=== PATIENT | female | born 1960 | race African-American/Black ===

== ENCOUNTER 2017-03-12 15:34 | Observation (INO) | payer OTHER ==
[~2017-03-12] VITALS: Ht 160 cm; Wt 56.8 kg
[~2017-03-12 15:34] MED LIST: IBUP600T26 PO; ULTR50TA PO; Z.0.NO CURRENT MEDS
[2017-03-12 15:36] VITALS: BP 139/82; PULSE 99; RESP 20; TEMP 98.4; O2SAT 98
--- NOTE | 2017-03-12 17:18 | PD ---
HPI Chief Complaint: Injury Time Seen by Provider: 17:14 Travel History International Travel<30 days: No Contact w/Intl Traveler<30days: No Traveled to known affect area: No History of Present Illness HPI 56-year-old Afro-[place] female presents the emergency department status post fall 5 days ago while visiting [place]. Patient states she slipped and fell down a hill injuring her left elbow. Seen in the emergency department at that time and had multiple x-rays and CT scans. CT of the left forearm shows severely displaced fracture of the distal humerus and possible avulsion fracture of the olecranon process. The patient elected to not pursue further care in [place] as her insurance would not cover any services. She is here now for follow-up wearing a splint and sling to the left arm. She is complaining of pain and is concerned about the swelling in the left hand. She has no numbness or tingling. Pain is described as a 9 out of 10. Patient has brought the copies of the x-rays and CT scans with her as well as reports from the emergency department. Patient states she has not eaten since last evening. She is allergic to contrast media and penicillin. PFSH Past Medical History Anemia: Yes Diabetes: No Diminished Hearing: No Menopausal: Yes : 0 Past Surgical History Other Surgery: Yes (PLASTIC SURGERY POST ACCIDENT LATE 'S) Social History Alcohol Use: Yes (4 PACK PER DAY) Tobacco Use: Yes (1 PPD) Substance Use: Yes ("DEEPTI BAG A DAY OF WEED") Allergies-Medications (Allergen,Severity, Reaction): Coded Allergies: Penicillin (Verified Allergy, Severe, Anaphylaxis, 03/12/17) Contrast Media (Verified Allergy, Intermediate, Anaphylaxis, 03/12/17) Reported Meds & Prescriptions Reported Meds & Active Scripts Active Ultram (Tramadol HCl) 50 Mg Tab 50 Mg PO Q4 PRN Take as needed for pain. Ibuprofen 600 Mg Tab 600 Mg PO Q8H PRN Reported No Current Meds (Miscellaneous Medication) Misc Review of Systems Except as stated in HPI: all other systems reviewed are Neg General / Constitutional: No: Fever Eyes: No: Visual changes HENT: No: Headaches Cardiovascular: No: Chest Pain or Discomfort Respiratory: No: Shortness of Breath Gastrointestinal: No: Abdominal Pain Genitourinary: No: Dysuria Musculoskeletal: No: Pain Skin: No Rash Neurologic: No: Weakness Psychiatric: No: Depression Endocrine: No: Polydipsia Hematologic/Lymphatic: No: Easy Bruising Physical Exam Exam Limitations: Poor Historian Narrative GENERAL: Patient appears mild to moderate distress. SKIN: Warm and dry. Normal color. Normal turgor. There is ecchymosis to the left hand with moderate swelling. The hand is warm and she is able to wiggle her fingers. HEAD: Atraumatic. Normocephalic. EYES: Pupils equal and round. No scleral icterus. No injection or drainage. ENT: No nasal bleeding or discharge. Mucous membranes pink and moist. Pharynx is clear. Airway is patent. NECK: Trachea midline. Supple nontender. CARDIOVASCULAR: Regular rate and rhythm. RESPIRATORY: No accessory muscle use. Clear to auscultation. Breath sounds equal bilaterally. MUSCULOSKELETAL: Extremities without clubbing, cyanosis, or edema. No obvious deformities. Patient is in a posterior long-arm splint. Neurovascular exam of the left hand is within normal limits. Ecchymosis is noted. NEUROLOGICAL: Awake and alert. No obvious cranial nerve deficits. Motor grossly within normal limits. Five out of 5 muscle strength in the arms and legs. Normal speech. PSYCHIATRIC: Appropriate mood and affect; insight and judgment normal. Data Data Last Documented VS Vital Signs Date Time Temp Pulse Resp B/P Pulse Ox O2 Delivery O2 Flow Rate FiO2 03/12/17 15:36 98.4 99 20 139/82 98 Orders Ice/Cold Pack (03/12/17 17:18) Oxycodone-Acetamin 7.5-325 Mg (Percocet (03/12/17 17:30) Basic Metabolic Panel (Bmp) (03/12/17 17:36) Complete Blood Count With Diff (03/12/17 17:36) Iv Access Insert/Monitor (03/12/17 17:36) Ecg Monitoring (03/12/17 17:36) Oximetry (03/12/17 17:36) Morphine Inj (Morphine Inj) (03/12/17 17:45) Ondansetron Inj (Zofran Inj) (03/12/17 17:45) Sodium Chlor 0.9% 1000 Ml Inj (Ns 1000 M (03/12/17 17:36) Sodium Chloride 0.9% Flush (Ns Flush) (03/12/17 17:45) Electrocardiogram (03/12/17 17:36) Ct Elbow W/O Contrast (03/12/17 ) Elbow, Limited (Ap&Lat) (03/12/17 17:18) Admit Order (Ed Use Only) (03/12/17 18:59) Labs Laboratory Tests Test 03/12/17 18:25 White Blood Count 6.1 TH/MM3 Red Blood Count 3.40 MIL/MM3 Hemoglobin 11.5 GM/DL Hematocrit 33.6 % Mean Corpuscular Volume 98.8 FL Mean Corpuscular Hemoglobin 33.7 PG Mean Corpuscular Hemoglobin 34.2 % Concent Red Cell Distribution Width 13.3 % Platelet Count 144 TH/MM3 Mean Platelet Volume 9.1 FL Neutrophils (%) (Auto) 39.9 % Lymphocytes (%) (Auto) 45.5 % Monocytes (%) (Auto) 12.1 % Eosinophils (%) (Auto) 1.7 % Basophils (%) (Auto) 0.8 % Neutrophils # (Auto) 2.4 TH/MM3 Lymphocytes # (Auto) 2.8 TH/MM3 Monocytes # (Auto) 0.7 TH/MM3 Eosinophils # (Auto) 0.1 TH/MM3 Basophils # (Auto) 0.1 TH/MM3 CBC Comment DIFF FINAL Differential Comment MDM Medical Decision Making Medical Screen Exam Complete: Yes Emergency Medical Condition: Yes Medical Record Reviewed: Yes Differential Diagnosis Recent fall. Left elbow fracture. Need for open reduction and fixation. Narrative Course Patient is medically stable at time of exam. Medical record from the [place] emergency department and CT results are reviewed with Dr. Mead. Call was placed to Dr. Ford, the orthopedic on-call. Patient was discussed with Dr. Ford and he recommended that the patient have x -rays, repeat CBC, and basic labs for surgery tomorrow morning. He requested the patient be admitted to the hospitalist and made nothing by mouth after midnight. Labs ordered including CBC, BMP, EKG, chest x-ray, repeat x-ray of the left elbow and CT of the left elbow. IV access is obtained and the patient is given 4 mg Zofran IV as well as 4 mg morphine IV. Patient started on normal saline 125 mL per hour. 1830 hrs. call was placed to the hospitalist for admission. Diagnosis Primary Impression: Comminuted left humeral fracture Qualified Code: S42.352A - Closed displaced comminuted fracture of shaft of left humerus, initial encounter Admitting Information Admitting Physician Requests: Admit Condition: Stable Pedro Forte Mar 12, 2017 17:18
[2017-03-12] MEDS ORDERED: oxyCODONE/ACETAMINOPHEN 7.5 MG/325 MG TAB PO ONE (17:30)
[2017-03-12] MEDS ORDERED: SODIUM CHLOR 0.9% 1000 ML INJ 1,000 ML IV SCH (17:36)
[2017-03-12] MEDS ORDERED: ONDANSETRON HCL 4 MG/2 ML VIAL IVP ONE (17:45)
[2017-03-12] MEDS ORDERED: MORPHINE SULFATE 4 MG/ML INJ IV PUSH ONE (17:45)
[2017-03-12] MEDS ORDERED: SODIUM CHLORIDE 0.9% FLUSH 10 ML FLUSH IV FLUSH PRN ×2 (17:45→19:30)
--- NOTE | 2017-03-12 18:17 | RADRPT ---
EXAM DATE/TIME: 03/12/2017 17:40 [facility] COMPARISON: No previous studies available for comparison. INDICATIONS : Left elbow pain after patient fell down a hill today MEDICAL HISTORY : None. SURGICAL HISTORY : None. ENCOUNTER: Initial ACUITY: 1 day PAIN SCORE: 10/10 LOCATION: Left posterior elbow FINDINGS: There are comminuted fractures of the intercondylar distal humerus with at least 3 fragments present. A a lateral fragment also appears rotated. The radial head is not well seen in lateral projection and cannot exclude an associated radial head fracture. No radiopaque foreign bodies. CONCLUSION: Comminuted fractures of the distal intercondylar humerus. Mauricio Irvin MD on March 12, 2017 at 18:14 Board Certified Radiologist. This report was verified electronically.
[2017-03-12 18:41] LABS: AUTOMATED NEUTROPHIL # 2.4 TH/MM3 (1.8-7.7); BASOPHIL # 0.1 TH/MM3 (0-0.2); BASOPHIL % 0.8 % (0.0-2.0); EOSINOPHIL # 0.1 TH/MM3 (0-0.4); EOSINOPHIL % 1.7 % (0.0-4.0); HEMATOCRIT 33.6 % (35.0-46.0); HEMO FLAGS DIFF FINAL; LYMPH % 45.5 % (9.0-44.0); LYMPHOCYTE # 2.8 TH/MM3 (1.0-4.8); MEAN CELL VOLUME 98.8 FL (80.0-100.0); MEAN CORPUSCULAR HEMOGLOBIN 33.7 PG (27.0-34.0); MEAN CORPUSCULAR HGB CONC 34.2 % (32.0-36.0); MONO % 12.1 % (0.0-8.0); NEUT % 39.9 % (16.0-70.0); PLATELET COUNT 144 TH/MM3 (150-450); RED CELL DISTRIBUTION WIDTH 13.3 % (11.6-17.2); WHITE BLOOD COUNT 6.1 TH/MM3 (4.0-11.0)
--- NOTE | 2017-03-12 18:56 | RADRPT ---
EXAM DATE/TIME: 03/12/2017 17:56 [facility] COMPARISON: No previous studies available for comparison. INDICATIONS : Left elbow pain from fall. RADIATION DOSE: 47.88 CTDIvol (mGy) MEDICAL HISTORY : None SURGICAL HISTORY : None. ENCOUNTER: Initial ACUITY: 1 week PAIN SCALE: 10/10 LOCATION: Left elbow. TECHNIQUE: Volumetric scanning of the elbow was performed. Using automated exposure control and adjustment of t he mA and/or kV according to patient size, radiation dose was kept as low as reasonably achievable to obtain optimal diagnostic quality images. DICOM format image data is available electronically for r eview and comparison. FINDINGS: Severely comminuted fracture of the distal humerus in the intercondylar region for major fragments. There is a rotated fragment present laterally which measures 1.4 cm. The fracture lines do involve t he articular joint space. The metaphysis of the humerus is displaced anteriorly 1.5 cm with respect to the trochlea. The proximal radius and ulna appear grossly intact. CONCLUSION: Comminuted distal humeral fracture with several displaced fragments. Mauricio Irvin MD on March 12, 2017 at 18:52 Board Certified Radiologist. This report was verified electronically.
[2017-03-12 19:06] LABS: POTASSIUM 3.6 MEQ/L (3.5-5.1)
[2017-03-12] MEDS ORDERED: OXYC1TAB63 PO (19:09)
[2017-03-12] MEDS ORDERED: OXYC1CAP PO (19:09)
[2017-03-12] MEDS ORDERED: LACTULOSE SYRUP 20 GM/30 ML CUP PO PRN (19:30)
[2017-03-12] MEDS ORDERED: NALOXONE HCL 0.4 MG/ML AMP IV PRN (19:30)
[2017-03-12] MEDS ORDERED: SENNOSIDES 8.6 MG TAB PO PRN (19:30)
[2017-03-12] MEDS ORDERED: ONDANSETRON HCL 4 MG/2 ML VIAL IVP PRN (19:30)
[2017-03-12] MEDS ORDERED: BISACODYL 10 MG SUPP RECTAL PRN (19:30)
[2017-03-12] MEDS ORDERED: HYDROmorphone HCL PF 1 MG/ML VIAL IV PRN (19:30)
[2017-03-12 19:40] VITALS: BP 135/79; PULSE 90; RESP 18; O2SAT 99
[2017-03-12] MEDS: SODIUM CHLOR 0.9% 1000 ML INJ 1,000 ML IV SCH (19:40)
--- NOTE | 2017-03-12 19:57 | HHI.HP ---
[facility] Service [facility] Primary Care Physician Unknown Admission Diagnosis Left Elbow Fracture Diagnoses: (1) Comminuted left humeral fracture Diagnosis: Principal (2) Anemia Diagnosis: Principal (3) Thrombocytopenia Diagnosis: Principal (4) Alcohol abuse Diagnosis: Principal (5) Tobacco abuse Diagnosis: Principal Travel History International Travel<30 Days: No Contact w/Intl Traveler <30 Da: No Traveled to Known Affected Are: No History of Present Illness This is a 56-year-old female with a PMH of Alcohol Abuse and Tobacco Abuse who presented to the ER with complaints of left arm pain and swelling x5 days. States she fell while in [place] and was seen in ER there. CT LUE w/ severely displaced fracture of distal humerus and possible avulsion fracture of olecranon. Pt was offered surgical intervention, however she declined. Now w/ progressive pain/swelling. On arrival, BP 130/82, HR 99, O2 sat 98% on RA, Afebrile. Hemoglobin 11.5, previously 14 on 04/12/12. Platelets 144, previously 181 on 04/12/12. Chemistry essentially unremarkable. Elbow X-rays comminuted fracture of distal intercondylar humerus. CT LUE comminuted distal humerus fracture with several displaced fragments. Orthopedic Surgery consulted by ER physician, plan is for surgical intervention. Review of Systems Except as stated in HPI: all other systems reviewed are Neg ROS: 14 point review of systems otherwise negative. Past Family Social History Past Medical History PMH: Alcohol Abuse and Tobacco Abuse Past Surgical History PAST SURGICAL HISTORY: Plastic Surgery Allergies: Coded Allergies: Penicillin (Verified Allergy, Severe, Anaphylaxis, 03/12/17) Contrast Media (Verified Allergy, Intermediate, Anaphylaxis, 03/12/17) Family History PAST FAMILY HISTORY: Reviewed. No h/o DM or CAD Social History PAST SOCIAL HISTORY: Drinks 4 pack daily. Smokes 1ppd. +Marijuana. Physical Exam Vital Signs Vital Signs Date Time Temp Pulse Resp B/P Pulse Ox O2 Delivery O2 Flow Rate FiO2 03/12/17 19:40 90 18 135/79 99 03/12/17 15:36 98.4 99 20 139/82 98 Physical Exam PE: GENERAL: Middle-aged female in no acute distress. HEENT: PERRLA, EOMI. No scleral icterus or conjunctival pallor. No lid lag or facial droop. CARDIOVASCULAR: Regular rate and rhythm. No obvious murmurs to auscultation. No chest tenderness to palpation. RESPIRATORY: No obvious rhonchi or wheezing. Clear to auscultation. Breath sounds equal bilaterally. GASTROINTESTINAL: Abdomen soft, non-tender, nondistended. BS normal. MUSCULOSKELETAL: Extremities without clubbing, cyanosis, or edema. No obvious deformities. LUE w/ swelling/ecchymosis. Decreased ROM due to pain. NEUROLOGICAL: Awake, alert and oriented x4. No focal neurologic deficits. Moving both upper and lower extremities spontaneously. Laboratory Laboratory Tests Test 03/12/17 18:25 White Blood Count 6.1 Red Blood Count 3.40 Hemoglobin 11.5 Hematocrit 33.6 Mean Corpuscular Volume 98.8 Mean Corpuscular Hemoglobin 33.7 Mean Corpuscular Hemoglobin 34.2 Concent Red Cell Distribution Width 13.3 Platelet Count 144 Mean Platelet Volume 9.1 Neutrophils (%) (Auto) 39.9 Lymphocytes (%) (Auto) 45.5 Monocytes (%) (Auto) 12.1 Eosinophils (%) (Auto) 1.7 Basophils (%) (Auto) 0.8 Neutrophils # (Auto) 2.4 Lymphocytes # (Auto) 2.8 Monocytes # (Auto) 0.7 Eosinophils # (Auto) 0.1 Basophils # (Auto) 0.1 CBC Comment DIFF FINAL Differential Comment Sodium Level 138 Potassium Level 3.6 Chloride Level 104 Carbon Dioxide Level 26.0 Anion Gap 8 Blood Urea Nitrogen 8 Creatinine 0.36 Estimat Glomerular Filtration 226 Rate Random Glucose 71 Calcium Level 8.7 Result Diagram: 03/12/17182403/12/171824 Assessment and Plan Problem List: (1) Comminuted left humeral fracture ICD Code: S42.302A Status: Acute (2) Thrombocytopenia ICD Code: D69.6 Status: Acute (3) Anemia ICD Code: D64.9 Status: Acute (4) Alcohol abuse ICD Code: F10.10 Status: Acute (5) Tobacco abuse ICD Code: Z72.0 Status: Acute Assessment and Plan A/P: 1. Left Elbow Fx: s/p fall 5 days ago in [place], found to have left elbow fracture, offered intervention however declined, now w/ progressive pain/ swelling, arrived w/ splint/sling. Elbow X-ray w/ comminuted fracture of distal intercondylar humerus. CT LUE with comminuted distal humerus fracture with several displaced fragments, images reviewed by me. Ortho consulted by ER physician, plan is for surgical intervention in am. NPO, IVF, analgesics/ antiemetics as needed. 2. Anemia: Hgb 11.5, previously 14.0 on 04/12/12. No active bleeding. Hemodynamically stable. Repeat labs in am. 3. Thrombocytopenia: Platelets 144, previously 181 on 04/12/12. No active bleeding as above. Repeat labs in am. 4. Alcohol Abuse: Drinks 4-6 beers/day. CIWA, Seizure Precautions, MVT/ Thiamine/Folate 5. Tobacco Abuse: Pt counselled. NicoDerm prn if needed. 6. DVT Prophylaxis: Anticoagulation post op per Ortho 7. Social work for d/c planning as needed. 8. Case discussed w/ ER physician at length. Physician Certification 2 Midnight Certification Type: Admission for Inpatient Services Order for Inpatient Services The services are ordered in accordance with Medicare regulations or non- Medicare payer requirements, as applicable. In the case of services not specified as inpatient-only, they are appropriately provided as inpatient services in accordance with the 2-midnight benchmark. Estimated LOS (days): 2 days is the estimated time the patient will need to remain in the hospital, assuming treatment plan goals are met and no additional complications. Post-Hospital Plan: Not yet determined Problem Qualifiers (1) Comminuted left humeral fracture: Qualified Code: S42.352A - Closed displaced comminuted fracture of shaft of left humerus, initial encounter Lizzie Sheridan MD Mar 12, 2017 19:57
[2017-03-12] MEDS: DOCUSATE SODIUM 50 MG/SENNA 8.6 MG TAB PO SCH (20:38)
[2017-03-12 21:00] VITALS: BP 114/78; PULSE 80; RESP 18; TEMP 96.9; O2SAT 97
[2017-03-12] MEDS: SODIUM CHLORIDE 0.9% FLUSH 10 ML FLUSH IV FLUSH SCH (21:00)
[2017-03-12] MEDS: HYDROmorphone HCL PF 1 MG/ML VIAL IV PRN (21:04)
[2017-03-12] MEDS ORDERED: SODIUM CHLORID 0.9% 500 ML IV PRN ×2 (21:30)
[2017-03-12] MEDS ORDERED: LACTATED RINGER'S 1000 ML IV PRN ×2 (21:30)
[2017-03-12] MEDS ORDERED: CHLORHEXIDINE GLUCONATE 2 % 1 PACK (2 CLOTHS) TOPICAL PRN ×2 (21:30)
[2017-03-12] MEDS ORDERED: INSULIN HUMAN REGULAR 1,000 UNITS/10 ML VIAL SQ PRN ×2 (21:30)
[2017-03-12] MEDS ORDERED: METOPROLOL TARTRATE 25 MG TAB PO PRN ×2 (21:30)
[2017-03-12] MEDS ORDERED: LORazepam 2 MG/ML VIAL IV PUSH PRN ×4 (22:15)
[2017-03-12] MEDS ORDERED: LORazepam 2 MG TAB PO PRN (22:15)
[2017-03-12] MEDS ORDERED: FLUMAZENIL 0.5 MG/5 ML VIAL IV PUSH PRN (22:15)
[2017-03-12] MEDS ORDERED: LORazepam 1 MG TAB PO PRN (22:15)
[2017-03-12] MEDS ORDERED: HALOPERIDOL LACTATE 5 MG/ML AMP IM PRN (22:15)
[2017-03-13 00:15] VITALS: BP 114/76; PULSE 81; RESP 16; TEMP 96.4; O2SAT 95
[2017-03-13] MEDS: HYDROmorphone HCL PF 1 MG/ML VIAL IV PRN ×3 (03:21→12:45)
[2017-03-13 04:15] VITALS: BP 111/70; PULSE 77; RESP 17; TEMP 96.2; O2SAT 95
[2017-03-13] MEDS: SODIUM CHLOR 0.9% 1000 ML INJ 1,000 ML IV SCH (06:00)
[2017-03-13 08:00] VITALS: BP 131/85; PULSE 76; RESP 18; TEMP 96.4; O2SAT 97
[2017-03-13 08:40] LABS: BICARBONATE 25.6 MEQ/L (21.0-32.0); POTASSIUM 4.1 MEQ/L (3.5-5.1)
[2017-03-13 08:42] LABS: AUTOMATED NEUTROPHIL # 2.1 TH/MM3 (1.8-7.7); BASOPHIL % 0.5 % (0.0-2.0); EOSINOPHIL # 0.1 TH/MM3 (0-0.4); EOSINOPHIL % 2.2 % (0.0-4.0); HEMATOCRIT 33.2 % (35.0-46.0); HEMO FLAGS DIFF FINAL; LYMPH % 37.3 % (9.0-44.0); LYMPHOCYTE # 1.6 TH/MM3 (1.0-4.8); MEAN CELL VOLUME 98.9 FL (80.0-100.0); MEAN CORPUSCULAR HEMOGLOBIN 33.5 PG (27.0-34.0); MEAN CORPUSCULAR HGB CONC 33.8 % (32.0-36.0); MONO % 12.3 % (0.0-8.0); NEUT % 47.7 % (16.0-70.0); PLATELET COUNT 148 TH/MM3 (150-450); RED BLOOD COUNT 3.35 MIL/MM3 (4.00-5.30); RED CELL DISTRIBUTION WIDTH 13.8 % (11.6-17.2); WHITE BLOOD COUNT 4.3 TH/MM3 (4.0-11.0)
[2017-03-13] MEDS: DOCUSATE SODIUM 50 MG/SENNA 8.6 MG TAB PO SCH ×2 (09:50→19:34)
[2017-03-13] MEDS: MULTIVITAMINS/MINERALS THERAPEUTIC TAB PO SCH (09:50)
[2017-03-13] MEDS: FOLIC ACID 1 MG TAB PO SCH (09:50)
[2017-03-13] MEDS: THIAMINE HCL 100 MG TAB PO SCH (09:50)
[2017-03-13] MEDS: SODIUM CHLORIDE 0.9% FLUSH 10 ML FLUSH IV FLUSH SCH ×2 (09:50→19:35)
[2017-03-13 12:00] VITALS: BP 142/78; PULSE 74; RESP 18; TEMP 96.5; O2SAT 97
--- NOTE | 2017-03-13 13:33 | EKG ---
Date Performed: 03/12/2017 Time Performed: 19:10:18 PTAGE: 56 years EKG: Sinus rhythm NORMAL ECG PREVIOUS TRACING : 12/17/2002 10.32 Since previous tracing, no significant change noted DOCTOR: Mario Santiago Interpretating Date/Time 03/13/2017 13:32:25
--- NOTE | 2017-03-13 13:55 | HHI.PR ---
Subjective Remarks This is a 56-year-old female with a PMH of Alcohol Abuse and Tobacco Abuse who presented to the ER with complaints of left arm pain and swelling x5 days. States she fell while in [place] and was seen in ER there. CT LUE w/ severely displaced fracture of distal humerus and possible avulsion fracture of olecranon. Pt was offered surgical intervention, however she declined. Now w/ progressive pain/swelling. On arrival, BP 130/82, HR 99, O2 sat 98% on RA, Afebrile. Hemoglobin 11.5, previously 14 on 04/12/12. Platelets 144, previously 181 on 04/12/12. Chemistry essentially unremarkable. Elbow X-rays comminuted fracture of distal intercondylar humerus. CT LUE comminuted distal humerus fracture with several displaced fragments. Orthopedic Surgery consulted by ER physician, plan is for surgical intervention. 03-13 await ortho surgery on the left elbow on Wednesday Patient states pain is not controlled yet Will adjust her pain medications Discussed with patient and RN Objective Vitals Vital Signs Date Time Temp Pulse Resp B/P Pulse Ox O2 Delivery O2 Flow Rate FiO2 03/13/17 08:00 96.4 76 18 131/85 97 03/13/17 04:15 96.2 77 17 111/70 95 03/13/17 00:15 96.4 81 16 114/76 95 03/12/17 21:00 96.9 80 18 114/78 97 03/12/17 19:40 90 18 135/79 99 03/12/17 15:36 98.4 99 20 139/82 98 I/O 03/12/17 03/12/17 03/12/17 03/13/17 03/13/17 03/13/17 06:59 14:59 22:59 06:59 14:59 22:59 Intake Total 240 ml 0 ml 70 ml Balance 240 ml 0 ml 70 ml Intake Oral 240 ml 0 ml IV Total 70 ml # Voids 1 1 # Bowel Movements 0 0 Result Diagram: 03/13/17 0737 03/13/17 0737 Other Results Laboratory Tests Test 03/12/17 03/13/17 18:25 07:37 White Blood Count 6.1 TH/MM3 4.3 TH/MM3 Red Blood Count 3.40 MIL/MM3 3.35 MIL/MM3 Hemoglobin 11.5 GM/DL 11.2 GM/DL Hematocrit 33.6 % 33.2 % Mean Corpuscular Volume 98.8 FL 98.9 FL Mean Corpuscular Hemoglobin 33.7 PG 33.5 PG Mean Corpuscular Hemoglobin 34.2 % 33.8 % Concent Red Cell Distribution Width 13.3 % 13.8 % Platelet Count 144 TH/MM3 148 TH/MM3 Mean Platelet Volume 9.1 FL 9.2 FL Neutrophils (%) (Auto) 39.9 % 47.7 % Lymphocytes (%) (Auto) 45.5 % 37.3 % Monocytes (%) (Auto) 12.1 % 12.3 % Eosinophils (%) (Auto) 1.7 % 2.2 % Basophils (%) (Auto) 0.8 % 0.5 % Neutrophils # (Auto) 2.4 TH/MM3 2.1 TH/MM3 Lymphocytes # (Auto) 2.8 TH/MM3 1.6 TH/MM3 Monocytes # (Auto) 0.7 TH/MM3 0.5 TH/MM3 Eosinophils # (Auto) 0.1 TH/MM3 0.1 TH/MM3 Basophils # (Auto) 0.1 TH/MM3 0.0 TH/MM3 CBC Comment DIFF FINAL DIFF FINAL Differential Comment Sodium Level 138 MEQ/L 142 MEQ/L Potassium Level 3.6 MEQ/L 4.1 MEQ/L Chloride Level 104 MEQ/L 107 MEQ/L Carbon Dioxide Level 26.0 MEQ/L 25.6 MEQ/L Anion Gap 8 MEQ/L 9 MEQ/L Blood Urea Nitrogen 8 MG/DL 6 MG/DL Creatinine 0.36 MG/DL 0.34 MG/DL Estimat Glomerular Filtration 226 ML/MIN 242 ML/MIN Rate Random Glucose 71 MG/DL 69 MG/DL Calcium Level 8.7 MG/DL 8.0 MG/DL Imaging Last Impressions Elbow X-Ray 03/12/17 1718 Signed Impressions: Service Date/Time: Sunday, March 12, 2017 17:40 - CONCLUSION: Comminuted fractures of the distal intercondylar humerus. Mauricio Irvin MD Upper Extremity CT 03/12/17 0000 Signed Impressions: Service Date/Time: Sunday, March 12, 2017 17:56 - CONCLUSION: Comminuted distal humeral fracture with several displaced fragments. Mauricio Irvin MD Objective Remarks GENERAL: Awake and alert talkative and cooperative but appears to be in some degree of pain from the left upper extremity SKIN: Warm and dry. HEAD: Atraumatic. Normocephalic. EYES: Pupils equal and round. No scleral icterus. No injection or drainage. Extraocular muscles intact ENT: No nasal bleeding or discharge. Mucous membranes pink and moist. Tongue is midline NECK: Trachea midline. No JVD. CARDIOVASCULAR: Regular rate and rhythm. S1-S2 no S3 or S4 no heave or thrill or rub or gallop RESPIRATORY: No accessory muscle use. Clear to auscultation. Breath sounds equal bilaterally. GASTROINTESTINAL: Abdomen soft, non-tender, nondistended. Hepatic and splenic margins not palpable. MUSCULOSKELETAL: Extremities without clubbing, cyanosis, or edema. No obvious deformities. Left upper extremity in splint-- decreased swelling of left hand she states NEUROLOGICAL: Awake and alert. No obvious cranial nerve deficits. Motor grossly within normal limits. Five out of 5 muscle strength in the arms and legs. Normal speech. Left upper extremity decreased range of motion secondary to splint and pain PSYCHIATRIC: Appropriate mood and affect; insight and judgment normal. Medications and IVs Inpatient Medications Bisacodyl (Dulcolax Supp) 10 mg DAILY PRN RECTAL SEVERE CONSITIPATION; Start at 19:30 Chlorhexidine Gluconate (Chlorhexidine 2% Cloth) 3 pack GLASS CUT OFF SUPERVISOR PRN TOPICAL SEE LABEL COMMENTS; Start 03/12/17 at 21:30; Stop 03/12/17 at 21:30; Status DC Flumazenil (Romazicon Inj) 0.2 mg Q1M PRN IV PUSH SEE LABEL COMMENTS; Start 03/12/17 at 22:15 Folic Acid (Folate) 1 mg DAILY PO Last administered on 03/13/17 09:50; Start at 09:00; Stop 03/18/17 at 08:59 Haloperidol Lactate (Haldol Inj) 2 mg Q15M PRN IM SEE LABEL COMMENTS; Start 03/12/17 at 22:15 Hydromorphone HCl (Dilaudid Pf Inj) 1 mg Q3H PRN IV Pain 6-10;if unable to take PO Last administered on 03/13/17 12:45; Start 03/12/17 at 19:30 Insulin Human Regular (NovoLIN R INJ) See Protocol Table ... GLASS CUT OFF SUPERVISOR PRN SQ SEE PROTOCOL TABLE; Start 03/12/17 at 21:30; Stop 03/15/17 at 21:29 Lactated Ringer's 1,000 ml @ 30 mls/hr Q24H PRN IV SEE LABEL COMMENTS; Start at 21:30; Stop 03/15/17 at 21:29 Lactulose 30 ml 30 ml DAILY PRN PO SEVERE CONSITIPATION; Start 03/12/17 at 19:30 Lorazepam (Ativan Inj) 2 mg Q15M PRN IV PUSH CIWA > 20; Start 03/12/17 at 22:15 Lorazepam (Ativan) 2 mg Q2H PRN PO CIWA 11-14; Start 03/12/17 at 22:15 Magnesium Hydroxide (Milk Of Magnesia Liq) 30 ml Q12H PRN PO MILD - MODERATE CONSTIPATION; Start 03/12/17 at 19:30 Metoprolol Tartrate (Lopressor) 25 mg GLASS CUT OFF SUPERVISOR PRN PO SEE LABEL COMMENTS; Start 03/12/17 at 21:30; Stop 03/15/17 at 21:29 Morphine Sulfate (Morphine Inj) 4 mg ONCE ONCE IV PUSH Last administered on 18:27; Start 03/12/17 at 17:45; Stop 03/12/17 at 17:46; Status DC Multivitamins/ Minerals Therapeutic (Theragran M Tab) 1 tab DAILY PO Last administered on 03/13/17 09:50; Start 03/13/17 at 09:00; Stop 03/18/17 at 08:59 Naloxone HCl (Narcan Inj) 0.4 mg UNSCH PRN IV SEE LABEL COMMENTS; Start at 19:30 Ondansetron HCl (Zofran Inj) 4 mg Q6H PRN IVP NAUSEA OR VOMITING; Start at 19:30 Oxycodone/ Acetaminophen (Percocet 7.5-325 Mg) 1 tab ONCE ONCE PO ; Start at 17:30; Stop 03/12/17 at 17:40; Status DC Senna/Docusate Sodium (Rosetta-Colace) 1 tab BID PO Last administered on 03/13/17 09:50; Start 03/12/17 at 21:00 Sennosides (Senokot) 17.2 mg Q12H PRN PO MODERATE - SEVERE CONSTIPATION; Start 03/12/17 at 19:30 Sodium Chloride (NS 1000 ml Inj) 1,000 ml @ 100 mls/hr Q10H IV Last administered on 03/12/17 19:40; Start 03/12/17 at 20:00 Sodium Chloride (NS 500 ml Inj) 500 ml @ 30 mls/hr Q27H40C PRN IV SEE LABEL COMMENTS; Start 03/12/17 at 21:30; Stop 03/15/17 at 21:29 Sodium Chloride (NS Flush) 2 ml BID IV FLUSH Last administered on 03/13/17 09: 50; Start 03/12/17 at 21:00 Sodium Chloride 2 ml 2 ml UNSCH PRN IV FLUSH FLUSH AFTER USING IV ACCESS; Start 03/12/17 at 17:45; Stop 03/12/17 at 19:21; Status DC Thiamine HCl (Vitamin B1) 100 mg DAILY PO Last administered on 03/13/17 09:50; Start 03/13/17 at 09:00 Urinary Catheter: No Vascular Central Line Catheter: No A/P Problem List: (1) Comminuted left humeral fracture ICD Code: S42.302A Status: Acute (2) Thrombocytopenia ICD Code: D69.6 Status: Acute (3) Anemia ICD Code: D64.9 Status: Acute (4) Alcohol abuse ICD Code: F10.10 Status: Acute (5) Tobacco abuse ICD Code: Z72.0 Status: Acute Assessment and Plan 1. Left Elbow Fx: s/p fall 5 days ago in [place], found to have left elbow fracture, offered intervention however declined, now w/ progressive pain/ swelling, arrived w/ splint/sling. Elbow X-ray w/ comminuted fracture of distal intercondylar humerus. CT LUE with comminuted distal humerus fracture with several displaced fragments, images reviewed by me. Ortho consulted by ER physician, plan is for surgical intervention in am. NPO, IVF, analgesics/ antiemetics as needed. Seen by orthopedic surgery. Hopefully to have surgery on Wednesday with orthopnea due to the complexity of her fracture 2. Anemia: Hgb 11.5, previously 14.0 on 04/12/12. No active bleeding. Hemodynamically stable. Repeat labs in am. 3. Thrombocytopenia: Platelets 144, previously 181 on 04/12/12. No active bleeding as above. Repeat labs in am. 4. Alcohol Abuse: Drinks 4-6 beers/day. CIWA, Seizure Precautions, MVI/ Thiamine/Folate 5. Tobacco Abuse: Pt counselled. NicoDerm prn if needed. 6. DVT Prophylaxis: Anticoagulation post op per Ortho 7. Social work for d/c planning as needed. 8. Case discussed w/ ER physician at length. Surgery on Wednesday hopefully A.m. labs Diet DC fluid Adjust pain medications Problem Qualifiers (1) Comminuted left humeral fracture: Qualified Code: S42.352A - Closed displaced comminuted fracture of shaft of left humerus, initial encounter Clay Patel DO Mar 13, 2017 13:55
[2017-03-13] MEDS: oxyCODONE/ACETAMINOPHEN 7.5 MG/325 MG TAB PO PRN ×3 (15:08→23:44)
[2017-03-13 16:00] VITALS: BP 144/85; PULSE 66; RESP 18; TEMP 96.5; O2SAT 96
[2017-03-13 20:00] VITALS: BP 142/74; PULSE 70; RESP 18; TEMP 97.9; O2SAT 99
[2017-03-14] VITALS: BP 149/96; PULSE 74; RESP 18; TEMP 97.3; O2SAT 98
[2017-03-14 04:00] VITALS: BP 146/86; PULSE 81; RESP 20; TEMP 97.8; O2SAT 98
[2017-03-14] MEDS: oxyCODONE/ACETAMINOPHEN 7.5 MG/325 MG TAB PO PRN ×5 (05:09→23:53)
[2017-03-14 08:00] VITALS: BP 142/80; PULSE 75; RESP 18; TEMP 97.2; O2SAT 99
[2017-03-14 08:29] LABS: AUTOMATED NEUTROPHIL # 1.8 TH/MM3 (1.8-7.7); BASOPHIL % 0.4 % (0.0-2.0); EOSINOPHIL # 0.1 TH/MM3 (0-0.4); EOSINOPHIL % 3.2 % (0.0-4.0); HEMATOCRIT 35.5 % (35.0-46.0); HEMO FLAGS DIFF FINAL; LYMPH % 30.6 % (9.0-44.0); MEAN CELL VOLUME 98.5 FL (80.0-100.0); MEAN CORPUSCULAR HEMOGLOBIN 33.3 PG (27.0-34.0); MEAN CORPUSCULAR HGB CONC 33.8 % (32.0-36.0); MONO % 12.1 % (0.0-8.0); NEUT % 53.7 % (16.0-70.0); PLATELET COUNT 147 TH/MM3 (150-450); RED BLOOD COUNT 3.61 MIL/MM3 (4.00-5.30); RED CELL DISTRIBUTION WIDTH 13.8 % (11.6-17.2); WHITE BLOOD COUNT 3.3 TH/MM3 (4.0-11.0)
[2017-03-14] MEDS: SODIUM CHLORIDE 0.9% FLUSH 10 ML FLUSH IV FLUSH SCH ×2 (09:00→19:36)
[2017-03-14 09:03] LABS: ALKALINE PHOSPHATASE 80 U/L (45-117); ALT (GPT) 25 U/L (10-53); ANION GAP 9 MEQ/L (5-15); AST (GOT) 35 U/L (15-37); BICARBONATE 26.6 MEQ/L (21.0-32.0); BLOOD UREA NITROGEN 4 MG/DL (7-18); CHLORIDE 103 MEQ/L (98-107); FREE T4 0.78 NG/DL (0.76-1.46); GLOMERULAR FILTRATION RATE 242 ML/MIN (>89); MAGNESIUM 2.2 MG/DL (1.5-2.5); POTASSIUM 3.8 MEQ/L (3.5-5.1); SODIUM (NA) 139 MEQ/L (136-145); TOTAL BILIRUBIN ADULT 0.6 MG/DL (0.2-1.0)
[2017-03-14] MEDS: FOLIC ACID 1 MG TAB PO SCH (09:33)
[2017-03-14] MEDS: MULTIVITAMINS/MINERALS THERAPEUTIC TAB PO SCH (09:33)
[2017-03-14] MEDS: DOCUSATE SODIUM 50 MG/SENNA 8.6 MG TAB PO SCH ×2 (09:34→19:36)
[2017-03-14] MEDS: THIAMINE HCL 100 MG TAB PO SCH (09:34)
[2017-03-14 12:00] VITALS: BP 152/81; PULSE 74; RESP 18; TEMP 97.6; O2SAT 99
[2017-03-14 12:53] LABS: HEMOGLOBIN A1a 1.1 %; HEMOGLOBIN A1b 0.6 %; HEMOGLOBIN Ao 86.9 %; HEMOGLOBIN F 0.9 %; HEMOGLOBIN LA1C 1.9 %; HEMOGLOBIN P3 3.1 %
--- NOTE | 2017-03-14 13:57 | HHI.PR ---
Subjective Remarks No acute events overnight. AVSS. Complains of severe pain in her left elbow. Also complains of constipation. Denies nausea/vomiting/diarrhea. Denies fever/ chills. No shortness of breath or chest pain. Objective Vitals Vital Signs Date Time Temp Pulse Resp B/P Pulse Ox O2 Delivery O2 Flow Rate FiO2 03/14/17 12:00 97.6 74 18 152/81 99 03/14/17 10:34 20 03/14/17 08:00 97.2 75 18 142/80 99 03/14/17 04:00 97.8 81 20 146/86 98 03/14/17 00:00 97.3 74 18 149/96 98 03/13/17 20:00 97.9 70 18 142/74 99 03/13/17 16:00 96.5 66 18 144/85 96 I/O 03/13/17 03/13/17 03/13/17 03/14/17 03/14/17 03/14/17 07:00 15:00 23:00 07:00 15:00 23:00 Intake Total 0 ml 670 ml 360 ml 120 ml Balance 0 ml 670 ml 360 ml 120 ml Intake Oral 0 ml 600 ml 360 ml 120 ml IV Total 70 ml # Voids 1 5 3 2 # Bowel Movements 0 Result Diagram: 03/14/1747 03/14/17 0747 Objective Remarks GENERAL: Awake and alert talkative and cooperative but appears to be in some degree of pain from the left upper extremity SKIN: Warm and dry. HEAD: Atraumatic. Normocephalic. EYES: Pupils equal and round. No scleral icterus. No injection or drainage. Extraocular muscles intact ENT: No nasal bleeding or discharge. Mucous membranes pink and moist. Tongue is midline NECK: Trachea midline. No JVD. CARDIOVASCULAR: Regular rate and rhythm. S1-S2 no S3 or S4 no heave or thrill or rub or gallop RESPIRATORY: No accessory muscle use. Clear to auscultation. Breath sounds equal bilaterally. GASTROINTESTINAL: Abdomen soft, non-tender, nondistended. Hepatic and splenic margins not palpable. MUSCULOSKELETAL: Extremities without clubbing, cyanosis, or edema. No obvious deformities. Left upper extremity in splint-- decreased swelling of left hand she states NEUROLOGICAL: Awake and alert. No obvious cranial nerve deficits. Motor grossly within normal limits. Five out of 5 muscle strength in the arms and legs. Normal speech. Left upper extremity decreased range of motion secondary to splint and pain. Full range of motion of fingers. Capillary refill less than 2 seconds. PSYCHIATRIC: Appropriate mood and affect; insight and judgment normal. A/P Problem List: (1) Comminuted left humeral fracture ICD Code: S42.302A Status: Acute (2) Thrombocytopenia ICD Code: D69.6 Status: Acute (3) Anemia ICD Code: D64.9 Status: Acute (4) Alcohol abuse ICD Code: F10.10 Status: Acute (5) Tobacco abuse ICD Code: Z72.0 Status: Acute Assessment and Plan 1. Left Elbow Fx: s/p fall 5 days ago in [place], found to have left elbow fracture, offered intervention however declined, now w/ progressive pain/ swelling, arrived w/ splint/sling. Elbow X-ray w/ comminuted fracture of distal intercondylar humerus. CT LUE with comminuted distal humerus fracture with several displaced fragments. Ortho consulted, plan is for surgical intervention Sunday 09/10 complexity of fracture. NPO, IVF, analgesics/ antiemetics as needed. 2. Constipation: Scheduled fer-colace. /2 opioids. 3. Anemia: Hgb 11.5, previously 14.0 on 04/12/12. No active bleeding. Hemodynamically stable. Monitor. 4. Thrombocytopenia: Platelets 147, previously 181 on 04/12/12. No active bleeding as above. Monitor. 5. Alcohol Abuse: Drinks 4-6 beers/day. CIWA, Seizure Precautions, MVI/ Thiamine/Folate 6. Tobacco Abuse: Pt counselled. NicoDerm prn if needed. 7. DVT Prophylaxis: Anticoagulation post op per Ortho 8. Social work for d/c planning as needed. Discharge Planning Pending surgical repair and recommendations by ortho Problem Qualifiers (1) Comminuted left humeral fracture: Qualified Code: S42.352A - Closed displaced comminuted fracture of shaft of left humerus, initial encounter Jackelyn Cooley MD R3 Mar 14, 2017 13:57
[2017-03-14 16:00] VITALS: BP 142/72; PULSE 78; RESP 18; TEMP 97.6; O2SAT 98
[2017-03-14] MEDS: HYDROmorphone HCL PF 1 MG/ML VIAL IV PRN (17:01)
[2017-03-14] MEDS: MAGNESIUM HYDROXIDE SUSP 30 ML CUP PO PRN (19:36)
[2017-03-14 20:30] VITALS: BP 150/89; PULSE 81; RESP 17; TEMP 97.3; O2SAT 97
[2017-03-15 00:40] VITALS: BP 169/73; PULSE 71; RESP 17; TEMP 97.5; O2SAT 100
[2017-03-15 04:35] VITALS: BP 133/93; PULSE 75; RESP 17; TEMP 97.2; O2SAT 98
--- NOTE | 2017-03-15 06:41 | PD.ORT.PN ---
Subjective Subjective Remarks s/p fall in [place] left elbow pain. no other complaints Objective Vitals Vital Signs Date Time Temp Pulse Resp B/P Pulse Ox O2 Delivery O2 Flow Rate FiO2 03/15/17 04:35 97.2 75 17 133/93 98 03/15/17 00:40 97.5 71 17 169/73 100 03/14/17 20:30 97.3 81 17 150/89 97 03/14/17 17:31 20 03/14/17 16:00 97.6 78 18 142/72 98 03/14/17 14:39 20 03/14/17 12:00 97.6 74 18 152/81 99 03/14/17 08:00 97.2 75 18 142/80 99 I/O 03/14/17 03/14/17 03/14/17 03/15/17 03/15/17 03/15/17 07:00 15:00 23:00 07:00 15:00 23:00 Intake Total 120 ml 960 ml 480 ml 0 ml Balance 120 ml 960 ml 480 ml 0 ml Intake Oral 120 ml 960 ml 480 ml 0 ml # Voids 2 3 2 2 # Bowel Movements 0 0 2 Result Diagram: 03/14/17 0747 03/14/17 0747 Objective Remarks LUE: +long arm splint. full senation to median/ulnar nerve. good extension of wrist/fingers,. Assessment & Plan Assessment and Plan 1) Left Distal Humerus Fx -Consents -surgery today Duane Tapia Mar 15, 2017 06:41
[2017-03-15] MEDS: HYDROmorphone HCL PF 1 MG/ML VIAL IV PRN (07:31)
[2017-03-15 07:37] VITALS: BP 145/73; PULSE 71; RESP 18; TEMP 97.4; O2SAT 99
[2017-03-15] MEDS ORDERED: VANCOMYCIN HCL 1000 MG VIAL ONE (08:13)
[2017-03-15] MEDS ORDERED: ceFAZolin INJ 1,000 MG VIAL ONE (08:13)
[2017-03-15] MEDS ORDERED: GENTAMICIN SULFATE 80 MG/2 ML VIAL ONE (08:13)
[2017-03-15] MEDS ORDERED: SODIUM CHLOR 0.9% 250 ML INJ 250 ML ONE (08:14)
--- NOTE | 2017-03-15 08:51 | MB ---
cc: WOODZACARIAS DATE OF CONSULTATION: 03/15/2017 REASON FOR CONSULTATION Left distal humerus fracture. CONSULTING PHYSICIAN Dr. Sheridan. HISTORY OF PRESENT ILLNESS Chiara is a 56-year-old female who fell approximately one week ago while in [place]. She states that she was walking to a pool and subsequently fell. She landed on her left elbow. She had immediate left elbow pain. She had x-rays done there which revealed a left distal humerus fracture. She was placed into a splint. She was then on her way down to [place], [place]. She lives in that area. She subsequently stopped in [facility] because of increased pain. She presented to [facility] where x-rays revealed a left distal humerus intra-articular fracture. She is currently awake and alert on the orthopedic floor. Her only complaint is her left arm. She denies any dizziness, syncope or loss of consciousness. PAST MEDICAL HISTORY ILLNESSES History of tobacco and alcohol abuse. SURGERIES Cosmetic plastic surgery. ORIF left proximal humerus. ALLERGIES PENICILLIN AND CONTRAST MEDIA. MEDICATIONS Please see EMR for complete list of medications. This was reviewed. FAMILY HISTORY Noncontributory. SOCIAL HISTORY The patient drinks at least four drinks a day. She smokes a pack a day. She uses marijuana. REVIEW OF SYSTEMS The patient denies headache, visual changes, neck pain, chest pain, shortness of breath, abdominal pain, nausea, vomiting, recent weight loss or numbness or tingling of extremities. She complains of left elbow pain. PHYSICAL EXAMINATION GENERAL: The patient is a 56-year-old female in no acute distress. She is awake and alert. She is alert and oriented x3. VITAL SIGNS: Temperature 97.2, pulse 75, respirations 17, blood pressure 133/93, O2 sat 98% on room air. HEAD: The patient is normocephalic. Pupils are equal. NECK: Soft, nontender. Trachea is midline. ABDOMEN: Soft, nontender, nondistended. EXTREMITIES: Examination of left arm reveals no tenderness around her shoulder, wrist or fingers. She has intact sensation in all fingers. She has good cap refill in all fingers. Radial pulses palpable. She is diffusely tender around the left elbow. She has pain with any elbow motion. Examination of right arm reveals no pain with shoulder, elbow or wrist motion. Skin is intact. Radial pulses palpable. Sensation intact in all fingers. Examination of bilateral lower extremities reveals no pain with hip, knee or ankle motion. Skin is intact in both feet. Dorsalis pedis pulses are palpable. Sensation is intact in both feet. IMAGING STUDIES X-rays and CT scan of left elbow were reviewed. The patient has a displaced intra-articular left distal humerus fracture. IMPRESSION Displaced left distal humerus fracture. PLAN Treatment options were discussed with the patient. At this point I would recommend open reduction, internal fixation of left distal humerus. Risks of surgery include bleeding, infection, injuries to arteries, nerves and blood vessels, nonunion, malunion, painful hardware, elbow stiffness, loss of motion as well as medical complications including blood clot, stroke, heart attack and . I also discussed with her possible ulnar nerve injury with possible permanent weakness of the fingers and hand. I also discussed with her the possible need for a proximal ulna osteotomy. All questions were answered. I will plan on surgery today. A mid-level provider in my office, nurse practitioner or PA, may see this patient on a follow-up basis and continue to implement the objective of this plan including: Starting or adjusting medications, injections of muscle, tendon, bursa or joints, cast application, orthotic or brace application, physical therapy, further radiographic studies including x-ray, MRI, CT, ultrasounds or bone scan, vascular studies, neurologic studies, or other specialist consultations, and proceeding with surgical management as appropriate. MD BRADEN Phillips/ADEN /7:27 AM /8:31 AM
[2017-03-15] MEDS: MULTIVITAMINS/MINERALS THERAPEUTIC TAB PO SCH (09:00)
[2017-03-15] MEDS: FOLIC ACID 1 MG TAB PO SCH (09:00)
[2017-03-15] MEDS: THIAMINE HCL 100 MG TAB PO SCH (09:00)
[2017-03-15] MEDS: SODIUM CHLORIDE 0.9% FLUSH 10 ML FLUSH IV FLUSH SCH ×2 (09:00→19:54)
[2017-03-15] MEDS: DOCUSATE SODIUM 50 MG/SENNA 8.6 MG TAB PO SCH ×2 (09:00→19:54)
[2017-03-15] MEDS ORDERED: ENDO7.5T10 PO (09:09)
[2017-03-15] MEDS ORDERED: ACETAMINOPHEN 1000 MG/100 ML VIAL IV ONE (09:22)
[2017-03-15] MEDS ORDERED: DEXAMETHASONE SOD PHOS 4 MG/ML VIAL ONE (09:23)
[2017-03-15] MEDS ORDERED: fentaNYL CITRATE 250 MCG/5 ML AMP ONE ×2 (09:23→12:08)
[2017-03-15] MEDS ORDERED: MIDAZOLAM HCL 2 MG/2 ML VIAL ONE (09:23)
[2017-03-15] MEDS ORDERED: FAMOTIDINE 20 MG/2 ML VIAL ONE (09:23)
--- NOTE | 2017-03-15 11:36 | PD.OP ---
cc: Bhupendra Cheney MD Operative Report Date of Surgery: Mar 15, 2017 Preoperative Diagnosis: left distal humerus supracondylar intra-articular fracture Postoperative Diagnosis: Procedure: ORIF left distal humerus supracondylar intra-articular fracture Anesthesia: Gen. Surgeon: Bhupendra Cheney Clinical Data Management Manager(s): OUSMANE Herbert PA-C The surgical procedure was assisted by my physician dental assistant. My P.A. presence was necessary throughout this case for the manipulation and positioning of the surgical extremity. My P.A. was assisting me throughout the duration of this procedure. The skill set of a physician dental assistant was medically necessary to complete this procedure. During the surgical case the neurosurgical physician assistant was working at the back table and the physician dental assistant was directly assisting me. Operation and Findings: Patient was seen and evaluated preoperatively. Treatment options were discussed regarding her left distal humerus fracture including surgical and nonsurgical treatments. After detailed discussion of risk and benefits of procedure patient wishes to proceed with surgery. Risks of surgery include bleeding, infection, nonunion, malunion, painful hardware, loss of motion of shoulder and elbow, weakness and numbness of arm, ulnar nerve injury as well as medical competitions including blood clots stroke and . Patient was brought to operating room and placed on the OR table. GETA was administered by anesthesiologist. Patient was positioned in lateral decubitus position. Extremities were well-padded. Axillary roll was placed. Operative arm and shoulder were prepped with alcohol followed by Hibiclens and draped usual sterile fashion. Timeout procedure was performed. IV antibiotics were given prior to incision. A standard posterior approach was utilized. Subcutaneous tissues was dissected with Bovie. The lateral border of the triceps was elevated off of the distal humerus. Fracture site was visualized. Next, the ulnar nerve was identified and protected throughout the procedure. The nerve was intact. The fracture was identified along the medial distal humerus. Soft tissue was removed from the fracture site. Fracture site was cleaned with curettes. At this point the fracture was reduced using fracture tenaculums. The medial fragment was one large fragment. The lateral side was in 3 fragments. The capitellar fragments were carefully reduced and keyed into excellent alignment. Multiplanar fluoroscopy confirmed excellent of fracture. Synthes distal humerus plates were selected. The medial plate was provisionally held the bone with K wires. 3.5 cortical screws were placed to compress plate to bone. Multiple 2.7 locking screws were placed distally. Care was taken to keep screws from penetrating the articular surface. Multiple screws were placed in each side of the fracture. All screws were predrilled and premeasured for appropriate length. Next the lateral plate was placed along the posterior lateral humerus. Plate was provisionally held to bone with K wires. 3.5 cortical screws were used to compress plate to bone. Additional 2.7 locking screws were placed distally. K wires were removed. 2 additional Biomet 1.5 mm bioabsorbable pins were placed across the capitellar fragments. Final fluoroscopy revealed excellent alignment of fracture with well-placed hardware. Incision was thoroughly irrigated. Fascia was closed with #1 Vicryl, subcutaneous tissues closed with 3-0 Vicryl, and skin was closed with rodney. Sterile dressings were applied. Needle and sponge counts were correct. Patient was placed into a sling, and then transferred to recovery room in stable condition Bhupendra Cheney MD Mar 15, 2017 11:36
[2017-03-15] MEDS ORDERED: Post-op Orders (for Pharmacy) MISC XX ONE (11:53)
[2017-03-15] MEDS ORDERED: DO NOT ADM ANY ANTICOAGULANT DRUGS PRN (11:53)
[2017-03-15] MEDS ORDERED: NEOSTIGMINE 3 MG/3 ML SYR IV ONE ×2 (12:00)
[2017-03-15] MEDS ORDERED: PROPOFOL 200 MG/20 ML AMP IV ONE ×2 (12:00)
[2017-03-15] MEDS ORDERED: ONDANSETRON HCL 4 MG/2 ML VIAL IV PUSH ONE ×2 (12:00)
[2017-03-15] MEDS ORDERED: *morphine SULFATE 8 MG/ML PERIprocedure ONLY ONE ×2 (12:04→12:18)
[2017-03-15 12:58] VITALS: BP 142/89; PULSE 65; RESP 16; TEMP 95.3; O2SAT 100
--- NOTE | 2017-03-15 13:29 | HHI.PR ---
Subjective Remarks Follow up for left elbow fracture, constipation, anemia. The patient is seen s/ p left arm ORIF, now drowsy. She does awaken to voice, answers few questions then falls asleep. Seen with nurse at bedside. The patient reports pain at the left elbow. Denies any chest pain, shortness of breath, nausea/vomiting or abdominal complaints. Constipation resolved with 2 BMs last night. No fevers/ chills. No other concerns at this time. Objective Vitals Vital Signs Date Time Temp Pulse Resp B/P Pulse Ox O2 Delivery O2 Flow Rate FiO2 03/15/17 12:58 95.3 65 16 142/89 100 03/15/17 12:30 70 16 156/79 100 Nasal Cannula 2 03/15/17 12:15 72 16 156/84 100 Nasal Cannula 2 03/15/17 12:00 84 16 158/91 98 Nasal Cannula 2 03/15/17 11:57 97.6 88 16 164/96 98 Nasal Cannula 2 03/15/17 07:37 97.4 71 18 145/73 99 03/15/17 04:35 97.2 75 17 133/93 98 03/15/17 00:40 97.5 71 17 169/73 100 03/14/17 20:30 97.3 81 17 150/89 97 03/14/17 17:31 20 03/14/17 16:00 97.6 78 18 142/72 98 03/14/17 14:39 20 I/O 03/14/17 03/14/17 03/14/17 03/15/17 03/15/17 03/15/17 07:00 15:00 23:00 07:00 15:00 23:00 Intake Total 120 ml 960 ml 480 ml 0 ml 50 ml Balance 120 ml 960 ml 480 ml 0 ml 50 ml Intake Oral 120 ml 960 ml 480 ml 0 ml IV Total 50 ml # Voids 2 3 2 2 # Bowel Movements 0 0 2 Result Diagram: 03/14/17 0747 03/14/17 0747 Imaging Last Impressions Elbow X-Ray 03/12/17 1718 Signed Impressions: Service Date/Time: Sunday, March 12, 2017 17:40 - CONCLUSION: Comminuted fractures of the distal intercondylar humerus. Mauricio Irvin MD Upper Extremity CT 03/12/17 0000 Signed Impressions: Service Date/Time: Sunday, March 12, 2017 17:56 - CONCLUSION: Comminuted distal humeral fracture with several displaced fragments. Mauricio Irvin MD Objective Remarks GENERAL: Well-nourished, well-developed middle aged female patient in NAD. Drowsy. SKIN: Warm and dry. No rash. HEENT: Normocephalic. Atraumatic. Pupils equal and round. Mucous membranes pink and moist. NECK: Supple. Trachea midline. CARDIOVASCULAR: Regular rate and rhythm. S1, S2 noted. No murmur appreciated. RESPIRATORY: No accessory muscle use. Clear to auscultation. Breath sounds equal bilaterally. GASTROINTESTINAL: Abdomen soft, non-tender, nondistended. Normoactive bowel sounds x4. MUSCULOSKELETAL: No obvious deformities. LUE in surgical dressing and sling, distal sensation intact with brisk capillary refill. NEUROLOGICAL: Awake and alert, but drowsy. No obvious cranial nerve deficits. Motor grossly within normal limits. Normal speech. PSYCHIATRIC: Appropriate mood and affect; insight and judgment normal. Procedures 03/15/17 - ORIF left distal humerus supracondylar intra-articular fracture by Dr. Cheney Medications and IVs Current Medications Medications (Trade) Dose Ordered Sig/Olivia Route Start Time Stop Time Status Last Admin (NS Flush) 2 ml UNSCH PRN IV FLUSH 03/12/17 19:30 03/13/17 12:44 (NS Flush) 2 ml BID IV FLUSH 03/12/17 21:00 03/14/17 19:36 (Zofran Inj) 4 mg Q6H PRN IVP 03/12/17 19:30 (Narcan Inj) 0.4 mg UNSCH PRN IV 03/12/17 19:30 (Milk Of Magnesia Liq) 30 ml Q12H PRN PO 03/12/17 19:30 03/14/17 19:36 (Senokot) 17.2 mg Q12H PRN PO 03/12/17 19:30 (Dulcolax Supp) 10 mg DAILY PRN RECTAL 03/12/17 19:30 Lactulose 30 ml 30 ml DAILY PRN PO 03/12/17 19:30 Lactated Ringer's 1,000 ml @ 30 mls/hr Q24H PRN IV 03/12/17 21:30 03/15/17 21:29 (NS 500 ml Inj) 500 ml @ 30 mls/hr [id number] PRN IV 03/12/17 21:30 03/15/17 21:29 (Folate) 1 mg DAILY PO 03/13/17 09:00 03/18/17 08:59 03/14/17 09:33 (Vitamin B1) 100 mg DAILY PO 03/13/17 09:00 03/14/17 09:34 (Theragran M Tab) 1 tab DAILY PO 03/13/17 09:00 03/18/17 08:59 03/14/17 09:33 (Romazicon Inj) 0.2 mg Q1M PRN IV PUSH 03/12/17 22:15 (Ativan) 1 mg Q4H PRN PO 03/12/17 22:15 (Ativan Inj) 1 mg Q4H PRN IV PUSH 03/12/17 22:15 (Ativan) 2 mg Q2H PRN PO 03/12/17 22:15 (Ativan Inj) 2 mg Q2H PRN IV PUSH 03/12/17 22:15 (Ativan Inj) 2 mg Q1H PRN IV PUSH 03/12/17 22:15 (Ativan Inj) 2 mg Q15M PRN IV PUSH 03/12/17 22:15 (Haldol Inj) 2 mg Q15M PRN IM 03/12/17 22:15 Senna/Docusate Sodium 2 tab 2 tab BID PO 03/14/17 21:00 (Ancef 2 Gm Premix) 50 ml @ 100 mls/hr Q8H IV 03/15/17 11:45 03/15/17 20:14 UNV ([place] 10-325 Mg) 1 tab Q4H PRN PO 03/15/17 11:45 (Morphine Inj) 4 mg Q3H PRN IV PUSH 03/15/17 11:45 Miscellaneous Information ALL NURSING DEPARTME... UNSCH PRN .XX 03/15/17 11:53 03/16/17 11:52 A/P Problem List: (1) Comminuted left humeral fracture ICD Code: S42.302A Status: Acute (2) Thrombocytopenia ICD Code: D69.6 Status: Acute (3) Anemia ICD Code: D64.9 Status: Acute (4) Alcohol abuse ICD Code: F10.10 Status: Acute (5) Tobacco abuse ICD Code: Z72.0 Status: Acute Assessment and Plan 56-year-old female with a PMH of Alcohol Abuse and Tobacco Abuse who presented to the ER with complaints of left arm pain and swelling x5 days. States she fell while in [place] and was seen in ER there. CT LUE w/ severely displaced fracture of distal humerus and possible avulsion fracture of olecranon. Pt was offered surgical intervention, however she declined. Now w/ progressive pain/ swelling. Left Elbow Comminuted/Displace Fracture: s/p fall. Elbow X-ray w/ comminuted fracture of distal intercondylar humerus. CT LUE with comminuted distal humerus fracture with several displaced fragments. -Ortho consulted, s/p ORIF 03/[address] Cheney -Continue supportive treatment with pain control and antiemetics prn -Continue sling -Further recommendations regarding PT and f/up per ortho Constipation: secondary to opioids. -Continue fer-colace 2tabs po bid scheduled -Constipation relieved with 2 BMs overnight -Continue to monitor Anemia: Hgb 11.5, previously 14.0 on 04/12/12. No active bleeding. -Hemodynamically stable. Monitor. Thrombocytopenia: Platelets 147, previously 181 on 04/12/12. -No active bleeding as above. Monitor. Alcohol Abuse: Drinks 4-6 beers/day. -Continue CIWA, Seizure Precautions, MVI/Thiamine/Folate Tobacco Abuse: Pt counselled. NicoDerm prn if needed. DVT Prophylaxis: Anticoagulation post op per Ortho Discharge Planning Likely discharge in 1-2 days when cleared by ortho. Problem Qualifiers (1) Comminuted left humeral fracture: Qualified Code: S42.352A - Closed displaced comminuted fracture of shaft of left humerus, initial encounter Hannah Cook PA-C Mar 15, 2017 13:29
[2017-03-15] MEDS: ACETAMINOPHEN/HYDROcodone 325 MG/10 MG TAB PO PRN ×3 (15:03→23:14)
[2017-03-15 16:00] VITALS: BP 140/84; PULSE 79; RESP 18; TEMP 96.5; O2SAT 98
[2017-03-15] MEDS: ceFAZolin 2 GM PREMIX 50 ML IV SCH (17:59)
[2017-03-15] MEDS: MORPHINE SULFATE 4 MG/ML INJ IV PUSH PRN (19:53)
[2017-03-15 20:00] VITALS: BP 117/76; PULSE 100; RESP 18; TEMP 97.4; O2SAT 99
--- NOTE | 2017-03-15 20:12 | RADRPT ---
EXAM DATE/TIME: 03/15/2017 11:14 [facility] COMPARISON: ELBOW LEFT LIMITED (AP & LAT), March 12, 2017, 17:40. INDICATIONS : Left elbow fracture repair. OR. MEDICAL HISTORY : None. SURGICAL HISTORY : None. ENCOUNTER: Initial ACUITY: 1 day PAIN SCORE: Non-responsive. LOCATION: Left elbow FINDINGS: Two view examination of the left elbow demonstrates plate and screw fixation of the distal humerus. N ear-anatomic alignment. No dislocation. CONCLUSION: 1. Plate and screw fixation of the distal humerus. No complications identified. Darrell Shabazz MD on March 15, 2017 at 20:09 Board Certified Radiologist. This report was verified electronically.
[2017-03-16] VITALS (7 sets, daily range): BP systolic 121–153; BP diastolic 69–85; PULSE 75–91; RESP 18–20; TEMP 96.9–98.5; O2SAT 98–100
[2017-03-16] MEDS: MORPHINE SULFATE 4 MG/ML INJ IV PUSH PRN (03:01)
[2017-03-16] MEDS: ceFAZolin 2 GM PREMIX 50 ML IV SCH (03:01)
[2017-03-16] MEDS: ACETAMINOPHEN/HYDROcodone 325 MG/10 MG TAB PO PRN ×4 (04:41→19:40)
--- NOTE | 2017-03-16 06:57 | PD.ORT.PN ---
Subjective Subjective Remarks POD 1 s/p ORIF left distal humerus doing well. reports pain but controlled with meds. out of bed on own. Objective Vitals Vital Signs Date Time Temp Pulse Resp B/P Pulse Ox O2 Delivery O2 Flow Rate FiO2 03/16/17 04:00 97.6 84 18 121/74 99 03/16/17 00:00 96.9 87 20 121/69 100 03/15/17 20:00 97.4 100 18 117/76 99 03/15/17 16:00 96.5 79 18 140/84 98 03/15/17 12:58 95.3 65 16 142/89 100 03/15/17 12:30 70 16 156/79 100 Nasal Cannula 2 03/15/17 12:15 72 16 156/84 100 Nasal Cannula 2 03/15/17 12:00 84 16 158/91 98 Nasal Cannula 2 03/15/17 11:57 97.6 88 16 164/96 98 Nasal Cannula 2 03/15/17 07:37 97.4 71 18 145/73 99 I/O 03/15/17 03/15/17 03/15/17 03/16/17 03/16/17 03/16/17 07:00 15:00 23:00 07:00 15:00 23:00 Intake Total 0 ml 170 ml 480 ml Balance 0 ml 170 ml 480 ml Intake Oral 0 ml 120 ml 480 ml IV Total 50 ml # Voids 2 1 4 # Bowel Movements 2 0 Result Diagram: 03/14/17 0747 03/14/17 0747 Objective Remarks LUE: +long arm splint. full senation to median/ulnar nerve. good extension of wrist/fingers,. Assessment & Plan Assessment and Plan 1) Left Distal Humerus Fx s/p ORIF - POD 1 -NWB -maintain splint at all times -pain control -plan for DC tomorrow if doing well -f/u with [facility] or [facility] in 2 weeks Duane Tapia Mar 16, 2017 06:57
[2017-03-16] MEDS: THIAMINE HCL 100 MG TAB PO SCH (08:33)
[2017-03-16] MEDS: DOCUSATE SODIUM 50 MG/SENNA 8.6 MG TAB PO SCH ×2 (08:33→20:24)
[2017-03-16] MEDS: MULTIVITAMINS/MINERALS THERAPEUTIC TAB PO SCH (08:33)
[2017-03-16] MEDS: FOLIC ACID 1 MG TAB PO SCH (08:33)
[2017-03-16] MEDS: SODIUM CHLORIDE 0.9% FLUSH 10 ML FLUSH IV FLUSH SCH ×2 (08:37→20:24)
--- NOTE | 2017-03-16 14:09 | HHI.PR ---
Subjective Remarks The patient complained of severe left elbow pain. She said earlier she was nauseous from the pain. She also says she has a hard time sleeping and would like a sleeping medication. She is hoping to go home tomorrow. Objective Vitals Vital Signs Date Time Temp Pulse Resp B/P Pulse Ox O2 Delivery O2 Flow Rate FiO2 03/16/17 12:00 98.5 84 18 137/74 100 03/16/17 09:05 99 21 03/16/17 08:00 97.7 82 18 126/85 98 03/16/17 04:00 97.6 84 18 121/74 99 03/16/17 00:00 96.9 87 20 121/69 100 03/15/17 20:00 97.4 100 18 117/76 99 03/15/17 16:00 96.5 79 18 140/84 98 I/O 03/15/17 03/15/17 03/15/17 03/16/17 03/16/17 03/16/17 06:59 14:59 22:59 06:59 14:59 22:59 Intake Total 0 ml 170 ml 480 ml 480 ml Balance 0 ml 170 ml 480 ml 480 ml Intake Oral 0 ml 120 ml 480 ml 480 ml IV Total 50 ml # Voids 2 1 4 2 # Bowel Movements 2 0 Result Diagram: 03/14/17 0747 03/14/17 0747 Imaging Last Impressions Elbow X-Ray 03/15/17 0000 Signed Impressions: Service Date/Time: Wednesday, March 15, 2017 11:14 - CONCLUSION: 1. Plate and screw fixation of the distal humerus. No complications identified. Darrell Shabazz MD Upper Extremity CT 03/12/17 0000 Signed Impressions: Service Date/Time: Sunday, March 12, 2017 17:56 - CONCLUSION: Comminuted distal humeral fracture with several displaced fragments. Mauricio Irvin MD Objective Remarks GENERAL: Well-nourished, well-developed female, in pain. SKIN: Warm and dry. No rash. HEENT: Normocephalic. Atraumatic. Pupils equal and round. Mucous membranes pink and moist. NECK: Supple. Trachea midline. CARDIOVASCULAR: Regular rate and rhythm. S1, S2 noted. No murmur appreciated. RESPIRATORY: No accessory muscle use. Clear to auscultation. Breath sounds equal bilaterally. GASTROINTESTINAL: Abdomen soft, non-tender, nondistended. Normoactive bowel sounds x4. MUSCULOSKELETAL: No obvious deformities. LUE in surgical dressing and sling, distal sensation intact with brisk capillary refill. NEUROLOGICAL: Awake and alert, but drowsy. No obvious cranial nerve deficits. Motor grossly within normal limits. Normal speech. PSYCHIATRIC: Appropriate mood and affect; insight and judgment normal. Procedures 03/15/17 - ORIF left distal humerus supracondylar intra-articular fracture by Dr. Cheney Medications and IVs Current Medications Medications (Trade) Dose Ordered Sig/Olivia Route Start Time Stop Time Status Last Admin (NS Flush) 2 ml UNSCH PRN IV FLUSH 03/12/17 19:30 03/13/17 12:44 (NS Flush) 2 ml BID IV FLUSH 03/12/17 21:00 03/16/17 08:37 (Zofran Inj) 4 mg Q6H PRN IVP 03/12/17 19:30 (Narcan Inj) 0.4 mg UNSCH PRN IV 03/12/17 19:30 (Milk Of Magnesia Liq) 30 ml Q12H PRN PO 03/12/17 19:30 03/14/17 19:36 (Senokot) 17.2 mg Q12H PRN PO 03/12/17 19:30 (Dulcolax Supp) 10 mg DAILY PRN RECTAL 03/12/17 19:30 (Lactulose Liq) 30 ml DAILY PRN PO 03/12/17 19:30 (Folate) 1 mg DAILY PO 03/13/17 09:00 03/18/17 08:59 03/16/17 08:33 (Vitamin B1) 100 mg DAILY PO 03/13/17 09:00 03/16/17 08:33 (Theragran M Tab) 1 tab DAILY PO 03/13/17 09:00 03/18/17 08:59 03/16/17 08:33 (Romazicon Inj) 0.2 mg Q1M PRN IV PUSH 03/12/17 22:15 (Ativan) 1 mg Q4H PRN PO 03/12/17 22:15 (Ativan Inj) 1 mg Q4H PRN IV PUSH 03/12/17 22:15 (Ativan) 2 mg Q2H PRN PO 03/12/17 22:15 (Ativan Inj) 2 mg Q2H PRN IV PUSH 03/12/17 22:15 (Ativan Inj) 2 mg Q1H PRN IV PUSH 03/12/17 22:15 (Ativan Inj) 2 mg Q15M PRN IV PUSH 03/12/17 22:15 (Haldol Inj) 2 mg Q15M PRN IM 03/12/17 22:15 (Rosetta-Colace) 2 tab BID PO 03/14/17 21:00 03/16/17 08:33 ([place] 10-325 Mg) 1 tab Q4H PRN PO 03/15/17 11:45 03/16/17 12:44 (Morphine Inj) 4 mg Q3H PRN IV PUSH 03/15/17 11:45 03/16/17 03:01 A/P Problem List: (1) Comminuted left humeral fracture ICD Code: S42.302A Status: Acute (2) Thrombocytopenia ICD Code: D69.6 Status: Acute (3) Anemia ICD Code: D64.9 Status: Acute (4) Alcohol abuse ICD Code: F10.10 Status: Acute (5) Tobacco abuse ICD Code: Z72.0 Status: Acute Assessment and Plan 56-year-old female with a PMH of Alcohol Abuse and Tobacco Abuse who presented to the ER with complaints of left arm pain and swelling x 5 days. States she fell while in [place] and was seen in ER there. CT LUE w/ severely displaced fracture of distal humerus and possible avulsion fracture of olecranon. Pt was offered surgical intervention, however she declined. Now w/ progressive pain/ swelling. Left Elbow Comminuted/Displace Fracture: s/p fall. Elbow X-ray w/ comminuted fracture of distal intercondylar humerus. CT LUE with comminuted distal humerus fracture with several displaced fragments. -Ortho consulted, s/p ORIF left distal humerus supracondylar intra-articular fracture by Dr. Cheney 03/15 -Continue supportive treatment with pain control and antiemetics prn. IV morphine ordered 03/16 as pt having severe pain not controlled with PO meds. -Continue sling -Further recommendations regarding PT and f/up per ortho Constipation: secondary to opioids. -Continue rosetta-colace 2tabs po bid scheduled -Continue to monitor Anemia: Hgb 11.5, previously 14.0 on 04/12/12. No active bleeding. -Hemodynamically stable. Monitor. Thrombocytopenia: Platelets 147, previously 181 on 04/12/12. -No active bleeding as above. Monitor. Alcohol Abuse: Drinks 4-6 beers/day, though she says she doesn't drink every day. -Continue CIWA, Seizure Precautions, MVI/Thiamine/Folate -cessation instruction Tobacco Abuse: Pt counselled. NicoDerm prn if needed. DVT Prophylaxis: Anticoagulation post op per Ortho Discharge Planning D/c when cleared by ortho. Likely in AM if pain is controlled Problem Qualifiers (1) Comminuted left humeral fracture: Qualified Code: S42.352A - Closed displaced comminuted fracture of shaft of left humerus, initial encounter Herb Dillon DO Mar 16, 2017 14:09
[2017-03-16] MEDS ORDERED: ZOLPIDEM TARTRATE 5 MG TAB PO PRN (14:45)
[2017-03-16] MEDS ORDERED: MORPHINE SULFATE 4 MG/ML INJ IV PUSH ONE (15:00)
[2017-03-16] MEDS: MAGNESIUM HYDROXIDE SUSP 30 ML CUP PO PRN (20:24)
[2017-03-17] VITALS: BP 151/92; PULSE 88; RESP 20; TEMP 97.9; O2SAT 99
[2017-03-17] MEDS: ACETAMINOPHEN/HYDROcodone 325 MG/10 MG TAB PO PRN ×4 (03:30→21:15)
--- NOTE | 2017-03-17 07:14 | PD.ORT.PN ---
Subjective Subjective Remarks Control with no new complaints Objective Vitals Vital Signs Date Time Temp Pulse Resp B/P Pulse Ox O2 Delivery O2 Flow Rate FiO2 03/17/17 00:00 97.9 88 20 151/92 99 03/16/17 20:00 98.5 91 18 129/81 99 03/16/17 16:00 97.9 75 18 153/83 100 03/16/17 12:00 98.5 84 18 137/74 100 03/16/17 09:05 99 21 03/16/17 08:00 97.7 82 18 126/85 98 I/O 03/16/17 03/16/17 03/16/17 03/17/17 03/17/17 03/17/17 07:00 15:00 23:00 07:00 15:00 23:00 Intake Total 480 ml 480 ml 480 ml 720 ml Balance 480 ml 480 ml 480 ml 720 ml Intake Oral 480 ml 480 ml 480 ml 720 ml # Voids 2 3 2 3 # Bowel Movements 0 Result Diagram: 03/14/17 0747 03/14/17 0747 Objective Remarks LUE: +long arm splint. Full sensation distally with full extension and flexion of all fingers Assessment & Plan Assessment and Plan 1) Left Distal Humerus Fx s/p ORIF - POD 2 -NWB -maintain splint at all times -pain control -plan for DC when able. Orthopedically cleared -f/u with Harpal or [facility]WNY in 2 weeks or with orthopedic surgeon in [facility] Herb Conley Jr. Mar 17, 2017 07:14
[2017-03-17 08:01] VITALS: BP 146/90; PULSE 86; RESP 18; TEMP 98.7; O2SAT 99
[2017-03-17] MEDS: DOCUSATE SODIUM 50 MG/SENNA 8.6 MG TAB PO SCH ×2 (09:00→20:00)
[2017-03-17] MEDS: FOLIC ACID 1 MG TAB PO SCH (10:29)
[2017-03-17] MEDS: THIAMINE HCL 100 MG TAB PO SCH (10:29)
[2017-03-17] MEDS: MULTIVITAMINS/MINERALS THERAPEUTIC TAB PO SCH (10:29)
[2017-03-17] MEDS: SODIUM CHLORIDE 0.9% FLUSH 10 ML FLUSH IV FLUSH SCH ×2 (10:30→20:00)
--- NOTE | 2017-03-17 11:36 | HHI.PR ---
Subjective Remarks The patient said that her pain was not much better. She requested to sustain additional day for pain control. She has no acute complaints otherwise. She wanted to know how many screws were used in her fracture repair. Objective Vitals Vital Signs Date Time Temp Pulse Resp B/P Pulse Ox O2 Delivery O2 Flow Rate FiO2 03/17/17 08:01 98.7 86 18 146/90 99 03/17/17 00:00 97.9 88 20 151/92 99 03/16/17 20:00 98.5 91 18 129/81 99 03/16/17 16:00 97.9 75 18 153/83 100 03/16/17 12:00 98.5 84 18 137/74 100 I/O 03/16/17 03/16/17 03/16/17 03/17/17 03/17/17 03/17/17 06:59 14:59 22:59 06:59 14:59 22:59 Intake Total 480 ml 480 ml 480 ml 720 ml Balance 480 ml 480 ml 480 ml 720 ml Intake Oral 480 ml 480 ml 480 ml 720 ml # Voids 2 3 2 3 # Bowel Movements 0 Result Diagram: 03/14/17 0747 03/14/17 0747 Imaging Last Impressions Elbow X-Ray 03/15/17 0000 Signed Impressions: Service Date/Time: Wednesday, March 15, 2017 11:14 - CONCLUSION: 1. Plate and screw fixation of the distal humerus. No complications identified. Darrell Shabazz MD Upper Extremity CT 03/12/17 0000 Signed Impressions: Service Date/Time: Sunday, March 12, 2017 17:56 - CONCLUSION: Comminuted distal humeral fracture with several displaced fragments. Mauricio Irvin MD Objective Remarks GENERAL: Well-nourished, well-developed female, in pain. SKIN: Warm and dry. No rash. HEENT: Normocephalic. Atraumatic. Pupils equal and round. Mucous membranes pink and moist. NECK: Supple. Trachea midline. CARDIOVASCULAR: Regular rate and rhythm. S1, S2 noted. No murmur appreciated. RESPIRATORY: No accessory muscle use. Clear to auscultation. Breath sounds equal bilaterally. GASTROINTESTINAL: Abdomen soft, non-tender, nondistended. Normoactive bowel sounds x4. MUSCULOSKELETAL: No obvious deformities. LUE in surgical dressing and sling, distal sensation intact with brisk capillary refill. NEUROLOGICAL: Awake and alert, but drowsy. No obvious cranial nerve deficits. Motor grossly within normal limits. Normal speech. PSYCHIATRIC: Slightly flattened affect. Procedures 03/15/17 - ORIF left distal humerus supracondylar intra-articular fracture by Dr. Cheney Medications and IVs Current Medications Medications (Trade) Dose Ordered Sig/Olivia Route Start Time Stop Time Status Last Admin (NS Flush) 2 ml UNSCH PRN IV FLUSH 03/12/17 19:30 03/13/17 12:44 (NS Flush) 2 ml BID IV FLUSH 03/12/17 21:00 03/17/17 10:30 (Zofran Inj) 4 mg Q6H PRN IVP 03/12/17 19:30 (Narcan Inj) 0.4 mg UNSCH PRN IV 03/12/17 19:30 (Milk Of Magnesia Liq) 30 ml Q12H PRN PO 03/12/17 19:30 03/16/17 20:24 (Senokot) 17.2 mg Q12H PRN PO 03/12/17 19:30 (Dulcolax Supp) 10 mg DAILY PRN RECTAL 03/12/17 19:30 (Lactulose Liq) 30 ml DAILY PRN PO 03/12/17 19:30 (Folate) 1 mg DAILY PO 03/13/17 09:00 03/18/17 08:59 03/17/17 10:29 (Vitamin B1) 100 mg DAILY PO 03/13/17 09:00 03/17/17 10:29 (Theragran M Tab) 1 tab DAILY PO 03/13/17 09:00 03/18/17 08:59 03/17/17 10:29 (Romazicon Inj) 0.2 mg Q1M PRN IV PUSH 03/12/17 22:15 (Ativan) 1 mg Q4H PRN PO 03/12/17 22:15 (Ativan Inj) 1 mg Q4H PRN IV PUSH 03/12/17 22:15 (Ativan) 2 mg Q2H PRN PO 03/12/17 22:15 (Ativan Inj) 2 mg Q2H PRN IV PUSH 03/12/17 22:15 (Ativan Inj) 2 mg Q1H PRN IV PUSH 03/12/17 22:15 (Ativan Inj) 2 mg Q15M PRN IV PUSH 03/12/17 22:15 (Haldol Inj) 2 mg Q15M PRN IM 03/12/17 22:15 (Rosetta-Colace) 2 tab BID PO 03/14/17 21:00 03/16/17 20:24 ([place] 10-325 Mg) 1 tab Q4H PRN PO 03/15/17 11:45 03/17/17 10:29 (Morphine Inj) 4 mg Q3H PRN IV PUSH 03/15/17 11:45 03/16/17 03:01 (Ambien) 5 mg HS PRN PO 03/16/17 14:45 03/16/17 20:24 A/P Problem List: (1) Comminuted left humeral fracture ICD Code: S42.302A Status: Acute (2) Thrombocytopenia ICD Code: D69.6 Status: Acute (3) Anemia ICD Code: D64.9 Status: Acute (4) Alcohol abuse ICD Code: F10.10 Status: Acute (5) Tobacco abuse ICD Code: Z72.0 Status: Acute Assessment and Plan 56-year-old female with a PMH of Alcohol Abuse and Tobacco Abuse who presented to the ER with complaints of left arm pain and swelling x 5 days. States she fell while in [place] and was seen in ER there. CT LUE w/ severely displaced fracture of distal humerus and possible avulsion fracture of olecranon. Pt was offered surgical intervention, however she declined. Now w/ progressive pain/ swelling. Left Elbow Comminuted/Displace Fracture: s/p fall. Elbow X-ray w/ comminuted fracture of distal intercondylar humerus. CT LUE with comminuted distal humerus fracture with several displaced fragments. -Ortho consulted, s/p ORIF left distal humerus supracondylar intra-articular fracture by Dr. Cheney 03/15 -Continue supportive treatment with pain control and antiemetics prn. IV morphine ordered 03/16 as pt having severe pain not controlled with PO meds. Added standing ibuprofen 03/17. -Continue sling -Further recommendations regarding PT and f/up per ortho Constipation: secondary to opioids. -Continue rosetta-colace 2tabs po bid scheduled -Continue to monitor Anemia: Hgb 11.5, previously 14.0 on 04/12/12. No active bleeding. -Hemodynamically stable. Monitor. Thrombocytopenia: Platelets 147, previously 181 on 04/12/12. -No active bleeding as above. Monitor. Alcohol Abuse: Drinks 4-6 beers/day, though she says she doesn't drink every day. -Continue CIWA, Seizure Precautions, MVI/Thiamine/Folate -cessation instruction Tobacco Abuse: Pt counselled. NicoDerm prn if needed. DVT Prophylaxis: Anticoagulation post op per Ortho Discharge Planning D/c home in AM Problem Qualifiers (1) Comminuted left humeral fracture: Qualified Code: S42.352A - Closed displaced comminuted fracture of shaft of left humerus, initial encounter Herb Dillon DO Mar 17, 2017 11:36
[2017-03-17 12:03] VITALS: BP 136/82; PULSE 83; RESP 18; TEMP 98.6; O2SAT 100
[2017-03-17] MEDS: PANTOPRAZOLE SOD 40 MG DELAYED RELEASE TAB PO SCH (13:17)
[2017-03-17] MEDS: IBUPROFEN 800 MG TAB PO SCH ×2 (13:18→21:15)
[2017-03-17 16:00] VITALS: BP 138/76; PULSE 90; RESP 18; TEMP 98.1; O2SAT 99
[2017-03-17 20:00] VITALS: BP 139/88; PULSE 87; RESP 16; TEMP 98.8; O2SAT 100
[2017-03-18] VITALS: BP 122/69; PULSE 75; RESP 16; TEMP 97; O2SAT 100
[2017-03-18] MEDS: ACETAMINOPHEN/HYDROcodone 325 MG/10 MG TAB PO PRN ×2 (05:36→13:29)
[2017-03-18] MEDS: IBUPROFEN 800 MG TAB PO SCH ×2 (05:36→13:29)
[2017-03-18 08:02] VITALS: BP 142/86; PULSE 83; RESP 16; TEMP 97.1; O2SAT 100
--- NOTE | 2017-03-18 08:06 | PD.ORT.PN ---
Subjective Subjective Remarks POD 3 s/p ORIF left distal humerus doing well. reports pain but controlled with meds. out of bed on own. Objective Vitals Vital Signs Date Time Temp Pulse Resp B/P Pulse Ox O2 Delivery O2 Flow Rate FiO2 03/18/17 08:02 97.1 83 16 142/86 100 03/18/17 00:00 97.0 75 16 122/69 100 03/17/17 20:00 98.8 87 16 139/88 100 03/17/17 16:00 98.1 90 18 138/76 99 03/17/17 14:18 16 03/17/17 12:03 98.6 83 18 136/82 100 I/O 03/17/17 03/17/17 03/17/17 03/18/17 03/18/17 03/18/17 07:00 15:00 23:00 07:00 15:00 23:00 Intake Total 720 ml 600 ml 720 ml 240 ml Balance 720 ml 600 ml 720 ml 240 ml Intake Oral 720 ml 600 ml 720 ml 240 ml # Voids 3 3 2 2 # Bowel Movements 3 1 0 Result Diagram: 03/14/17 0747 03/14/17 0747 Objective Remarks LUE: +long arm splint. Full sensation distally with full extension and flexion of all fingers Assessment & Plan Assessment and Plan 1) Left Distal Humerus Fx s/p ORIF - POD 3 -NWB -maintain splint at all times -pain control -plan for DC today -f/u with Harpal or [facility] in 2 weeks or with orthopedic surgeon in [facility] Duane Tapia Mar 18, 2017 08:06
[2017-03-18] MEDS ORDERED: IBUP800T23 PO (08:18)
--- NOTE | 2017-03-18 08:19 | HHI.DCPOC ---
Discharge Care Plan Diagnosis: (1) Alcohol abuse (2) Comminuted left humeral fracture (3) Tobacco abuse (4) Thrombocytopenia Goals to Promote Your Health * To prevent worsening of your condition and complications * To maintain your health at the optimal level Directions to Meet Your Goals Take your medications as prescribed Follow your dietary instruction Follow activity as directed Keep your appointments as scheduled Take your immunizations and boosters as scheduled If your symptoms worsen call your PCP, if no PCP go to Urgent Care Center or Emergency Room Smoking is Dangerous to Your Health. Avoid second hand smoke Call the 24-hour hour crisis hotline for domestic abuse at Herb Dillon DO Mar 18, 2017 08:19
--- NOTE | 2017-03-18 08:25 | HHI.DS ---
Discharge Summary Admission Date Mar 12, 2017 at 19:02 Discharge Date: Mar 18, 2017 Admitting Diagnosis Left Elbow Fracture (1) Comminuted left humeral fracture ICD Code: S42.302A Diagnosis: Principal (2) Thrombocytopenia ICD Code: D69.6 (3) Alcohol abuse ICD Code: F10.10 (4) Tobacco abuse ICD Code: Z72.0 Procedures 03/15/17 - ORIF left distal humerus supracondylar intra-articular fracture by Dr. Rowan Brief History - From Admission This is a 56-year-old female with a PMH of Alcohol Abuse and Tobacco Abuse who presented to the ER with complaints of left arm pain and swelling x5 days. States she fell while in [place] and was seen in ER there. CT LUE w/ severely displaced fracture of distal humerus and possible avulsion fracture of olecranon. Pt was offered surgical intervention, however she declined. Now w/ progressive pain/swelling. On arrival, BP 130/82, HR 99, O2 sat 98% on RA, Afebrile. Hemoglobin 11.5, previously 14 on 04/12/12. Platelets 144, previously 181 on 04/12/12. Chemistry essentially unremarkable. Elbow X-rays comminuted fracture of distal intercondylar humerus. CT LUE comminuted distal humerus fracture with several displaced fragments. Orthopedic Surgery consulted by ER physician, plan is for surgical intervention. CBC/BMP: 03/14/17 0747 03/14/17 0747 Imaging Last Impressions Elbow X-Ray 03/15/17 0000 Signed Impressions: Service Date/Time: Wednesday, March 15, 2017 11:14 - CONCLUSION: 1. Plate and screw fixation of the distal humerus. No complications identified. Darrell Shabazz MD Upper Extremity CT 03/12/17 0000 Signed Impressions: Service Date/Time: Sunday, March 12, 2017 17:56 - CONCLUSION: Comminuted distal humeral fracture with several displaced fragments. Mauricio Irvin MD PE at Discharge GENERAL: Well-nourished, well-developed female, in pain. SKIN: Warm and dry. No rash. HEENT: Normocephalic. Atraumatic. Pupils equal and round. Mucous membranes pink and moist. NECK: Supple. Trachea midline. CARDIOVASCULAR: Regular rate and rhythm. S1, S2 noted. No murmur appreciated. RESPIRATORY: No accessory muscle use. Clear to auscultation. Breath sounds equal bilaterally. GASTROINTESTINAL: Abdomen soft, non-tender, nondistended. Normoactive bowel sounds x4. MUSCULOSKELETAL: No obvious deformities. LUE in surgical dressing and sling, distal sensation intact with brisk capillary refill. Mild edema noted. NEUROLOGICAL: Awake and alert, but drowsy. No obvious cranial nerve deficits. Motor grossly within normal limits. Normal speech. PSYCHIATRIC: Slightly flattened affect. Pt update on day of discharge The patient was feeling a little bit better. She said that she would like to follow-up with an orthopedic doctor in [facility]. She had no acute complaints. Hospital Course Left elbow comminuted/ displaced fracture The pt presented to the ER with complaints of left arm pain and swelling x 5 days. States she fell while in [place] and was seen in the ER there. CT LUE w / severely displaced fracture of distal humerus and possible avulsion fracture of olecranon. Pt was offered surgical intervention, however, she declined. Now w/ progressive pain/swelling. Elbow X-ray w/ comminuted fracture of distal intercondylar humerus. CT LUE with comminuted distal humerus fracture with several displaced fragments. Orthopedic surgery was consulted, s/p ORIF left distal humerus supracondylar intra-articular fracture by Dr. Rowan 03/15. She received supportive treatment with pain control and a bowel regimen. She was placed in a sling. She will be discharged with pain medications. She will follow up with orthopedic surgery. Alcohol abuse/ tobacco abuse The pt was placed on CIWA protocol as well as seizure precautions. She received MVI/Thiamine/Folate. She received cessation instruction. Pt Condition on Discharge: Stable Discharge Disposition: Discharge Home Discharge Time: <= 30 minutes Discharge Instructions DIET: Follow Instructions for: As Tolerated, No Restrictions Activities you can perform: Non Weight Bearing Follow up Referrals: Orthopedics - 03/29/17 @ [facility] with Bhupendra Rowan MD New Medications: Oxycodone-Acetaminophen (Endocet) 7.5-325 mg Tab 1 TAB PO Q4H PRN Pain Management #60 Ref 0 TAB Ibuprofen (Ibuprofen) 800 Mg Tab 800 MG PO Q8HR PRN Pain #21 TAB Discontinued Medications: Oxycodone-Acetaminophen (Oxycodone-Acetaminophen) 5-325 mg Tab 1 TAB PO Q4H PRN PAIN Ref 0 TAB Herb Dillon DO Mar 18, 2017 08:25
[2017-03-18] MEDS: DOCUSATE SODIUM 50 MG/SENNA 8.6 MG TAB PO SCH (09:00)
[2017-03-18] MEDS: SODIUM CHLORIDE 0.9% FLUSH 10 ML FLUSH IV FLUSH SCH (09:00)
[2017-03-18] MEDS: THIAMINE HCL 100 MG TAB PO SCH (09:30)
[2017-03-18] MEDS: PANTOPRAZOLE SOD 40 MG DELAYED RELEASE TAB PO SCH (09:30)
[2017-03-18 11:51] VITALS: BP 145/84; PULSE 72; RESP 16; TEMP 97.7; O2SAT 100
== END 2017-03-18 14:20 | disposition home or self-care (01) ==
LOC: NEPD 15:34 → NEDA 19:02 → INTOOBSV 19:02 → N06B 20:48
PROVIDERS: ADMIT Hospitalist; ATTEND Hospitalist
PROC: 0PSG04Z Reposition Left Humeral Shaft with Internal Fixation Device, Open Approach (ICD-10-PCS; principal; 2017-03-12)
DX: S42.352A Displaced comminuted fracture of shaft of humerus, left arm, initial encounter for closed fracture (principal); F10.10 Alcohol abuse, uncomplicated; D69.6 Thrombocytopenia, unspecified; D64.9 Anemia, unspecified; F17.200 Nicotine dependence, unspecified, uncomplicated; Z71.6 Tobacco abuse counseling; F12.90 Cannabis use, unspecified, uncomplicated; K59.03 Drug induced constipation; W17.81XA Fall down embankment (hill), initial encounter
CPT/HCPCS: 01922; 24545; 73070; 73200; 76000; 80048; 80053; 82948; 83036; 83735; 84100; 84439; 84443; 85025; 93005; 96361; 96374; 96375; 99285; C1713; G0378; J0131; J0690; J1100; J1170; J1580; J2250; J2270; J2405; J2710; J3010; J3370; J7030; J7050